=== PATIENT | male | born 1960 | race Caucasian/White ===

== ENCOUNTER 2019-06-19 11:46 | Outpatient (CLI) | payer OTHER | END 2019-06-19 23:59 | disposition home or self-care (01) | LOC: CFH 11:46 | PROVIDERS: ATTEND Family Medicine | DX: N28.1 Cyst of kidney, acquired (principal); N18.3 Chronic kidney disease, stage 3 (moderate); K44.9 Diaphragmatic hernia without obstruction or gangrene; K76.89 Other specified diseases of liver; K57.30 Diverticulosis of large intestine without perforation or abscess without bleeding | CPT/HCPCS: 74177; 82565 ==